=== PATIENT | male | born 1940 | race Caucasian/White ===

== ENCOUNTER 2016-12-17 21:43 | Inpatient (IN) | payer BC ==
--- NOTE | ~2016-12-17 | HP ---
History And Physical [place] [id number] [facility] [place] [place]. [address] NAME: SHAUNA JIMENEZ : 38 STATUS : ADM IN [facility]#: [id number] AGE: 76 ADM/REG DATE : 12/18/16 MR#: [id number] REPORT SERV DATE: 12/18/16 DICTATED BY: JOSE MEJIA DATE: 12/18/16 REPORT STATUS : Draft TRANSCRIBED BY: MODL DATE: 12/18/16 DATE OF ADMISSION: 12/17/2016 CHIEF COMPLAINT: Bright red blood per rectum. HISTORY OF PRESENT ILLNESS: This is a 76-year-old male with a history of hypertension, diabetes, who underwent colonoscopy today done by Dr. Leandro Garcia and had biopsies performed as well. The patient was fine in recovery, had no issues and was discharged home today. After he got home, he was fine. He had some broth and other small things to eat, had no problems. However, around 7 p.m. he started feeling that he had to go to the restroom and had a bowel movement with large volume of bright red blood. They immediately decided to come back to the emergency room to be evaluated. Here in the emergency room he also had another massive bowel movement with a lot of bright red blood. Hospitalist Service has asked to admit him after I spoke with Dr. Mcqueen, who was covering for Dr. Garcia. Dr. Mcqueen had advised bowel prep for colonoscopy tomorrow. At the time of my evaluation, he denied any chest pain or palpitations. He had no orthopnea. He had no cough, hemoptysis, night sweats, or weight loss. He has not had any falls or loss of consciousness. He has not had any fevers or chills, nausea, vomiting, or diarrhea. He did have hematochezia as mentioned above. No history of hematuria or hematemesis. No other history of recent travel or exposures other than those mentioned above. His blood pressure upon arrival here initially was 109/65, at the time of my evaluation, he did drop down to 95/56 with a mean of 75. Since his arrival in the ER, I repeated a stat H and H after looking at the patient and he had a drop from 14.4 and 42.2 to 11.0 and 32.1 in about two hours. PAST MEDICAL HISTORY: Significant for essential hypertension and diabetes mellitus. SOCIAL HISTORY: He does not smoke, drink, or use recreational drugs. 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 FAMILY HISTORY: Noncontributory. MEDICATIONS: At home were reviewed by me in the chart today and reordered by me. REVIEW OF SYSTEMS: As in history of present illness. All other systems were reviewed in detail and quite unremarkable. PHYSICAL EXAMINATION: GENERAL: This is a pleasant 76-year-old, not in any acute distress. HEENT: His head is atraumatic, normocephalic. His pupils were equal, reacting to light and accommodating. External ocular muscles were intact. Membranes were moist and pink. Sclera appeared nonicteric. NECK: Supple with no jugular venous distention, lymphadenopathy, or thyromegaly. LUNGS: Auscultation of his lungs revealed fair to moderate air entry bilaterally with no History And Physical [address] [address] NAME: SHAUNA JIMENEZ : 38 STATUS : ADM IN [facility]#: [id number] AGE: 76 ADM/REG DATE : 12/18/16 MR#: [id number] REPORT SERV DATE: 12/18/16 DICTATED BY: JOSE MEJIA DATE: 12/18/16 REPORT STATUS : Draft TRANSCRIBED BY: KAYLEIGH DATE: 12/18/16 wheezes, rubs, or crackles. HEART: Heart sounds were regular with no murmurs, rubs, or gallops. ABDOMEN: Soft, nontender. Bowel sounds are present. EXTREMITIES: No cyanosis, clubbing, or edema. NEUROLOGIC: Grossly intact. No focal sensory or motor deficits. Other functions appeared intact. VITAL SIGNS: His vital signs today showed a temperature of 97.6, pulse 65, respirations 16 a minute, blood pressure upon arrival was 189/100 which later dropped down to 109/65. At the time of my evaluation, it was 95/56 with a mean of 75. Oxygen saturations were 100% on 2 L of oxygen via nasal cannula. LABORATORY DATA: Reviewed on the [employer] system showed a sodium of 145, potassium 4.1, chloride 114, and CO2 was 23. BUN was 18 with a creatinine of 1.35 which is his baseline. His blood glucose was 122. CBC showed a white blood cell count of 14,600, hemoglobin was 11, hematocrit 32.1, platelet count was 268,000. Urinalysis was not performed today. Films of the CT scan of his abdomen and pelvis were reviewed by me on the PACS today and official radiology report was also reviewed. There is no acute intra-abdominal or pelvic pathology. There is some thickening of the rectum. There was no perforation or pneumoperitoneum mentioned. IMPRESSION: 1. Acute gastrointestinal bleeding. 2. Status post colonoscopy today. 3. Essential hypertension. 4. Diabetes mellitus type 2. PLAN: We will admit Mr. Jimenez to the Hospitalist Service in a Medical Intermediate Care bed for close monitoring. At the time of my evaluation, his blood pressures had dropped and the patient started appearing pale. We type, cross, and transfused two units of packed red cells on a stat, started him on fluid boluses as well. His blood pressures returned and were trending. We will follow hemoglobin and hematocrit levels, and transfuse again if needed. He may need central venous access but we will monitor the situation closely. We will also start him on sugar control with NovoLog given subcutaneously per sliding scale. At this point, I called Dr. Mcqueen again and discussed hypotension and drop in hemoglobin and hematocrit levels with him, he is agreeable with the blood transfusions and has made to go ahead and start the GoLYTELY tonight. He is also okay with the IMCU admission at this point. We will watch Mr. Jimenez closely and I have discussed the above plans with the patient and his family. Questions were answered and they are agreeable to the above recommendations. We will also place him on SCDs for DVT prophylaxis while here. Please see today's orders for details. Total critical care time spent with the patient is 45 minutes including discussing with the patient's family and Dr. Mcqueen. /KAYLEIGH Jose Mejia, History And Physical [address] [address] NAME: SHAUNA JIMENEZ : 38 STATUS : ADM IN [facility]#: [id number] AGE: 76 ADM/REG DATE : 12/18/16 MR#: [id number] REPORT SERV DATE: 12/18/16 DICTATED BY: JOSE MEJIA DATE: 12/18/16 REPORT STATUS : Draft TRANSCRIBED BY: KAYLEIGH DATE: 12/18/16 Jessica / [id number] CC: Jessica Daugherty M.D.
--- NOTE | ~2016-12-17 | CN ---
Consultation Report [place] [address] [facility] [place]. [address] NAME: SHAUNA HUNTER JHON : 38 STATUS : ADM IN [facility]#: [id number] AGE: 76 ADM/REG DATE : 12/18/16 MR#: [id number] REPORT SERV DATE: 12/19/16 DICTATED BY: SHAUNA WARNER III DATE: 12/19/16 REPORT STATUS : Draft TRANSCRIBED BY: MODL DATE: 12/19/16 CONSULTATION DATE OF CONSULTATION: 12/18/2016 ATTENDING PHYSICIAN: Dr. Lau. REASON FOR CONSULTATION: 1. Acute abdominal pain. 2. Possible colon perforation. 3. Recommendation regarding surgical management. HISTORY OF PRESENT ILLNESS: We were asked to see this 76-year-old male emergently in the [facility]. The patient underwent a colonoscopy for screening purposes on 12/17/2016. The patient had several polyps removed. The patient tolerated the procedure well. On the evening of the procedure, he developed a large amount of bright red blood per rectum. This was associated with the right lower quadrant abdominal pain and syncopal episode. The patient was brought to the emergency room. He was found to have a normal hematocrit, but this dropped from 42 to 32. He received 2 units of blood in transfusion. He was prepped, and was taken for repeat colonoscopy by Dr. Lau; however, just prior to this, he developed a sudden onset of severe lower abdominal pain. Initially, there was a concern about possibility of pneumoperitoneum on KUB. Colonoscopy was not performed. A CT scan of the abdomen and pelvis was performed, which showed no evidence for perforation. The patient states that he feels much better. MEDICATIONS: Home medications; Altace, aspirin, and Aleve. ALLERGIES: NONE. PAST MEDICAL HISTORY: Remarkable for hypertension and diabetes. 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 He has no history of tobacco or alcohol use. He is . FAMILY HISTORY: Unremarkable. PHYSICAL EXAMINATION: GENERAL: This is a male, in no acute distress. He is alert and oriented x3. VITAL SIGNS: Temp 97.3, pulse 75, and blood pressure 140/72. Hematocrit 35 after 2 units of blood. White blood cell count of 7.6. Consultation Report [place] [address] [facility] [place]. [address] NAME: VOLKSHAUNA SCOTT : 38 STATUS : ADM IN PAT#: [id number] AGE: 76 ADM/REG DATE : 12/18/16 MR#: [id number] REPORT SERV DATE: 12/19/16 DICTATED BY: SHAUNA WARNER III DATE: 12/19/16 REPORT STATUS : Draft TRANSCRIBED BY: MODL DATE: 12/19/16 ABDOMEN: Soft and nontender. EXTREMITIES: Normal with no edema. LABORATORY DATA: KUB to my exam shows a large amount of gas in the colon with no evidence for pneumoperitoneum. CT scan of the abdomen and pelvis as above shows no evidence for an acute perforation. ASSESSMENT: 1. 76-year-old male with lower GI bleeding following polypectomy. This appears to be slowing clinically at this time. 2. Acute abdominal pain, with no evidence for gastrointestinal perforation clinically or on the CT scan. The patient does have a possible left ureteral stone which may be the etiology for his pain. 3. Hypertension. 4. Diabetes mellitus. PLAN: The patient is stable at this time. No evidence of need for acute surgical intervention. He remain in the ICU with serial hematocrits. A bleeding scan may be indicated if the bleeding continues. Otherwise, we will continue the patient with observation. I have explained to the patient that again he has no evidence for need for acute surgical issue at this time as long as the bleeding continues to eleno. We will follow the patient with you. This plan has been explained to the patient. His questions had been answered. He understands and agrees to this as planned. RHJ/KAYLEIGH Shauna Warner III, M.D. / [id number] CC: Jessica Daugherty M.D.
--- NOTE | ~2016-12-17 | DS ---
Discharge Summary [facility] [address] [place]. [address] NAME: SHAUNA JIMENEZ : 38 STATUS : DIS IN PAT#: [id number] AGE: 76 ADM/REG DATE : 12/18/16 MR#: [id number] REPORT SERV DATE: 12/28/16 DICTATED BY: BRONSON CORTEZ DATE: 12/27/16 REPORT STATUS : Draft TRANSCRIBED BY: MODL DATE: 12/27/16 ADMISSION DATE: 12/18/2016 DISCHARGE DATE: 12/21/2016 DISCHARGE DIAGNOSIS: 1. Postop GI bleed. 2. Ileus. 3. Hypertension. 4. Hemorrhoids. DISCHARGE: Medications and instructions follow up with GI as previously ordered. Follow up PCP in 1 to 2 weeks. DISCHARGE MEDICATIONS: Aspirin 81 mg one tab p.o. q.h.s., no Aleve and discontinue home Aleve, and ramipril 5 mg one tab p.o. at bedtime. HOSPITAL COURSE: Please see H and P for complete details of HPI. Briefly, Mr. Jimenez is a very pleasant 76-year-old male, who presents after having GI colonoscopy requiring polyps biopsy and removal, who is doing well post procedure, but had subsequent same-day GI bleed. Did have a drop in H and H, and was required to have repeat scope. The patient was able to have stabilization of bleeding. Dr. Resendiz was also consulted for possible acute perforation; however, this was ruled out. The patient was advanced diet. Serial CBCs remained stable, and the patient will have follow up with PCP and GI after discharge, the patient was agreeable to plan, felt comfortable without any discomfort and no more repeated bright red blood. DDN/MODL Bronson Cortez MD / [id number] CC: MD Mague Wren M.D.
--- NOTE | ~2016-12-17 | CN ---
Consultation Report [place] [address] [facility] [place]. [address] NAME: SHAUNA HUNTER : 38 STATUS : ADM IN PAT#: [id number] AGE: 76 ADM/REG DATE : 12/18/16 MR#: [id number] REPORT SERV DATE: 12/18/16 DICTATED BY: SANG PEREZ DATE: 12/18/16 REPORT STATUS : Draft TRANSCRIBED BY: MODL DATE: 12/18/16 GI CONSULT DATE OF CONSULTATION: 12/18/2016 HISTORY OF PRESENT ILLNESS: The patient is a 76-year-old gentleman who began bleeding after a colonoscopy and polypectomy yesterday. He had a whole toilet full of blood and one more large bowel movement in the ER, became lightheaded. He denies any abdominal pain, any fevers or chills. At the time of colonoscopy, a 2 cm polyp was removed from his ascending colon with hot snare technique in piecemeal fashion. A 1.2 cm polyp was removed from the appendiceal orifice and a smaller polyp was removed from the sigmoid. The patient, on admission, had a hemoglobin of 14, was given 2 units of blood and his hemoglobin today was about 12.5. PAST MEDICAL HISTORY: 1. Hypertension. 2. Diabetes mellitus. MEDICATIONS: Reviewed. He has not been taking any aspirin or nonsteroidals recently, although he is on these on a basis prior to his colonoscopy. ALLERGIES: NONE. SOCIAL HISTORY: The patient has a past history of tobacco use. Occasionally drinks wine. PHYSICAL EXAMINATION: GENERAL: The patient is a white male, in mild distress. LUNGS: Clear. CARDIOVASCULAR: Regular rhythm. ABDOMEN: Soft. There are no masses. No tenderness to palpation. LABORATORY DATA: As noted. ASSESSMENT: 1. Post polypectomy bleed. 2. Other medical problems as above. RECOMMENDATION: We will have the patient take GoLYTELY and try to perform therapeutic colonoscopy today. LS/MODL Consultation Report [address] [place]. [address] NAME: SHAUNA HUNTER : 39 STATUS : ADM IN PAT#: [id number] AGE: 76 ADM/REG DATE : 12/18/16 MR#: [id number] REPORT SERV DATE: 12/18/16 DICTATED BY: SANG PEREZ DATE: 12/18/16 REPORT STATUS : Draft TRANSCRIBED BY: KAYLEIGH DATE: 12/18/16 Sang Perez M.D. / [id number] CC: Jessica Daugherty M.D.
[2016-12-17] MEDS ORDERED: ASAB PO (21:44)
[2016-12-17] MEDS ORDERED: ALTA5 PO (21:44)
[2016-12-17] MEDS ORDERED: ALEVE220 MG PO (21:45)
[2016-12-17 21:49] LABS: BASOPHILS 0.5 %; BASOPHILS ABSOLUTE 0.07 10/3/uL (0.0-0.16); EOSINOPHILS 0.8 %; EOSINOPHILS ABSOLUTE 0.12 10/3/uL (0.0-0.53); HEMATOCRIT 42.2 % (40.0-51.0); HEMOGLOBIN 14.4 g/dL (13.6-17.8); IMMATURE GRANULOCYTES 0.3 %; IMMATURE GRANULOCYTES ABSOLUTE 0.04 10/3/uL (0.0-0.11); LYMPHOCYTES 14.7 %; LYMPHOCYTES ABSOLUTE 2.14 10/3/uL (0.67-4.30); MEAN CORPUS HGB CONC 34.1 g/dL (32.0-36.0); MEAN CORPUSCULAR HEMOGLOB 33.2 pg (26.0-34.0); MEAN CORPUSCULAR VOLUME 97.2 fL (80-100); MEAN PLATELET VOLUME 9.8 fL (9.2-13.0); MONOCYTES 5.8 %; MONOCYTES ABSOLUTE 0.84 10/3/uL (0.21-1.20); NEUTROPHILS 77.9 %; NEUTROPHILS ABSOLUTE 11.39 10/3/uL (2.02-8.40); PLATELET COUNT 268 10/3/uL (150-400); RBC DISTRIBUTION WIDTH 13.7 % (12.0-16.0); RED CELL COUNT 4.34 10/6/uL (4.7-6.1)
[2016-12-17 21:50] LABS: ER CBC TAT 0 Hrs 08 Mins; MANUAL DIFF NO %; WHITE BLOOD CELLS 14.6 10/3/uL (4.5-10.5)
[2016-12-17 21:55] LABS: INTERNATIONAL NORMAL RATI 1.1 UNITS (-); PARTIAL THROMBO TIME 24.4 SEC (22.5-37.2); PROTIME (NOT ORD) 13.6 SEC (12.0-14.5)
[2016-12-17 22:03] LABS: A/G RATIO 1.4 (0.7-1.9); ALBUMIN 3.9 G/DL (3.5-5.0); BUN (BLOOD UREA NITROGEN) 18 MG/DL (6-23); CALCIUM, SERUM 8.1 MG/DL (8.5-10.4); CHLORIDE, SERUM 114 MMOL/L (96-112); CO2 (CARBON DIOXIDE) 23 MMOL/L (24-34); CREATININE 1.35 MG/DL (0.70-1.30); GFR AFRICAN AMERICAN 58 ML/MIN (>=60); GFR NON AFRICAN AMERICAN 50 ML/MIN (>=60); GLOBULIN 2.8 G/DL (2.5-4.1); POTASSIUM, SERUM 4.1 MMOL/L (3.5-5.3); SGOT(AST) 16 U/L (5-40); SGPT(ALT) 21 U/L (5-65); SODIUM, SERUM 145 MMOL/L (135-148); TOTAL BILIRUBIN 1.9 MG/DL (0-1.2); TOTAL PROTEIN 6.7 G/DL (6.0-8.5)
[2016-12-17 22:04] LABS: ALKALINE PHOSPHATASE 87 U/L (45-117); GLUCOSE, SERUM 122 MG/DL (60-99)
[2016-12-17 23:08] LABS: HEMATOCRIT 32.1 % (40.0-51.0)
[2016-12-18 05:36] LABS: BASOPHILS 0.4 %; BASOPHILS ABSOLUTE 0.03 10/3/uL (0.0-0.16); EOSINOPHILS 0.4 %; EOSINOPHILS ABSOLUTE 0.03 10/3/uL (0.0-0.53); HEMOGLOBIN 12.4 g/dL (13.6-17.8); IMMATURE GRANULOCYTES 0.3 %; IMMATURE GRANULOCYTES ABSOLUTE 0.02 10/3/uL (0.0-0.11); LYMPHOCYTES 15.6 %; LYMPHOCYTES ABSOLUTE 1.19 10/3/uL (0.67-4.30); MEAN CORPUS HGB CONC 34.9 g/dL (32.0-36.0); MEAN CORPUSCULAR HEMOGLOB 32.1 pg (26.0-34.0); MEAN PLATELET VOLUME 9.7 fL (9.2-13.0); MONOCYTES 7.5 %; MONOCYTES ABSOLUTE 0.57 10/3/uL (0.21-1.20); NEUTROPHILS 75.8 %; NEUTROPHILS ABSOLUTE 5.79 10/3/uL (2.02-8.40); RED CELL COUNT 3.86 10/6/uL (4.7-6.1)
[2016-12-18 05:40] LABS: WHITE BLOOD CELLS 7.6 10/3/uL (4.5-10.5)
[2016-12-18 05:41] LABS: HEMATOCRIT 35.5 % (40.0-51.0); MANUAL DIFF NO %; PLATELET COUNT 165 10/3/uL (150-400)
[2016-12-18 05:52] LABS: BUN (BLOOD UREA NITROGEN) 16 MG/DL (6-23); CHLORIDE, SERUM 119 MMOL/L (96-112); CO2 (CARBON DIOXIDE) 23 MMOL/L (24-34); GFR AFRICAN AMERICAN 84 ML/MIN (>=60); GFR NON AFRICAN AMERICAN 72 ML/MIN (>=60); GLUCOSE, SERUM 99 MG/DL (60-99); POTASSIUM, SERUM 4.4 MMOL/L (3.5-5.3); SODIUM, SERUM 148 MMOL/L (135-148)
[2016-12-18 05:53] LABS: CALCIUM, SERUM 7.1 MG/DL (8.5-10.4)
[2016-12-18 12:10] LABS: HEMATOCRIT 34.5 % (40.0-51.0); HEMOGLOBIN 12.1 g/dL (13.6-17.8)
[2016-12-18 16:02] LABS: HEMOGLOBIN 11.5 g/dL (13.6-17.8)
[2016-12-18 23:12] LABS: HEMATOCRIT 33.5 % (40.0-51.0); HEMOGLOBIN 11.7 g/dL (13.6-17.8)
[2016-12-19 08:24] LABS: BASOPHILS 0.3 %; BASOPHILS ABSOLUTE 0.02 10/3/uL (0.0-0.16); EOSINOPHILS 0.7 %; EOSINOPHILS ABSOLUTE 0.05 10/3/uL (0.0-0.53); HEMATOCRIT 31.3 % (40.0-51.0); IMMATURE GRANULOCYTES 0.3 %; IMMATURE GRANULOCYTES ABSOLUTE 0.02 10/3/uL (0.0-0.11); LYMPHOCYTES 9.9 %; LYMPHOCYTES ABSOLUTE 0.73 10/3/uL (0.67-4.30); MANUAL DIFF NO %; MEAN CORPUS HGB CONC 35.1 g/dL (32.0-36.0); MEAN CORPUSCULAR HEMOGLOB 32.2 pg (26.0-34.0); MEAN CORPUSCULAR VOLUME 91.5 fL (80-100); MEAN PLATELET VOLUME 9.4 fL (9.2-13.0); MONOCYTES 6.3 %; MONOCYTES ABSOLUTE 0.47 10/3/uL (0.21-1.20); NEUTROPHILS 82.5 %; NEUTROPHILS ABSOLUTE 6.12 10/3/uL (2.02-8.40); PLATELET COUNT 127 10/3/uL (150-400); RED CELL COUNT 3.42 10/6/uL (4.7-6.1); WHITE BLOOD CELLS 7.4 10/3/uL (4.5-10.5)
[2016-12-19 08:35] LABS: BUN (BLOOD UREA NITROGEN) 9 MG/DL (6-23); CALCIUM, SERUM 7.7 MG/DL (8.5-10.4); CHLORIDE, SERUM 114 MMOL/L (96-112); CO2 (CARBON DIOXIDE) 24 MMOL/L (24-34); CREATININE 0.91 MG/DL (0.70-1.30); GFR AFRICAN AMERICAN 94 ML/MIN (>=60); GFR NON AFRICAN AMERICAN 81 ML/MIN (>=60); GLUCOSE, SERUM 83 MG/DL (60-99); SODIUM, SERUM 143 MMOL/L (135-148)
[2016-12-19 16:11] LABS: BASOPHILS 0.3 %; BASOPHILS ABSOLUTE 0.02 10/3/uL (0.0-0.16); EOSINOPHILS ABSOLUTE 0.06 10/3/uL (0.0-0.53); HEMATOCRIT 30.8 % (40.0-51.0); HEMOGLOBIN 10.9 g/dL (13.6-17.8); IMMATURE GRANULOCYTES 0.2 %; IMMATURE GRANULOCYTES ABSOLUTE 0.01 10/3/uL (0.0-0.11); LYMPHOCYTES 10.1 %; LYMPHOCYTES ABSOLUTE 0.61 10/3/uL (0.67-4.30); MEAN CORPUS HGB CONC 35.4 g/dL (32.0-36.0); MEAN CORPUSCULAR HEMOGLOB 32.5 pg (26.0-34.0); MEAN CORPUSCULAR VOLUME 91.9 fL (80-100); MEAN PLATELET VOLUME 9.2 fL (9.2-13.0); MONOCYTES ABSOLUTE 0.36 10/3/uL (0.21-1.20); NEUTROPHILS 82.4 %; NEUTROPHILS ABSOLUTE 4.97 10/3/uL (2.02-8.40); PLATELET COUNT 124 10/3/uL (150-400); RBC DISTRIBUTION WIDTH 15.6 % (12.0-16.0); RED CELL COUNT 3.35 10/6/uL (4.7-6.1)
[2016-12-19 16:12] LABS: MANUAL DIFF NO %
[2016-12-19 20:47] LABS: HEMATOCRIT 31.8 % (40.0-51.0); HEMOGLOBIN 11.2 g/dL (13.6-17.8)
[2016-12-19 22:20] LABS: BASOPHILS 0 %; EOSINOPHILS 1.2 %; EOSINOPHILS ABSOLUTE 0.06 10/3/uL (0.0-0.53); HEMOGLOBIN 9.9 g/dL (13.6-17.8); IMMATURE GRANULOCYTES 0.2 %; IMMATURE GRANULOCYTES ABSOLUTE 0.01 10/3/uL (0.0-0.11); LYMPHOCYTES 8.9 %; LYMPHOCYTES ABSOLUTE 0.45 10/3/uL (0.67-4.30); MEAN CORPUS HGB CONC 35.2 g/dL (32.0-36.0); MEAN CORPUSCULAR HEMOGLOB 32.2 pg (26.0-34.0); MEAN CORPUSCULAR VOLUME 91.5 fL (80-100); MEAN PLATELET VOLUME 9.3 fL (9.2-13.0); MONOCYTES 5.7 %; MONOCYTES ABSOLUTE 0.29 10/3/uL (0.21-1.20); NEUTROPHILS ABSOLUTE 4.24 10/3/uL (2.02-8.40); PLATELET COUNT 119 10/3/uL (150-400); RBC DISTRIBUTION WIDTH 15.6 % (12.0-16.0); RED CELL COUNT 3.07 10/6/uL (4.7-6.1); WHITE BLOOD CELLS 5.1 10/3/uL (4.5-10.5)
[2016-12-19 22:21] LABS: HEMATOCRIT 28.1 % (40.0-51.0); MANUAL DIFF NO %
[2016-12-20 05:20] LABS: BASOPHILS 0.2 %; BASOPHILS ABSOLUTE 0.01 10/3/uL (0.0-0.16); EOSINOPHILS 1.6 %; EOSINOPHILS ABSOLUTE 0.08 10/3/uL (0.0-0.53); HEMATOCRIT 28.3 % (40.0-51.0); HEMOGLOBIN 10.2 g/dL (13.6-17.8); IMMATURE GRANULOCYTES 0.2 %; IMMATURE GRANULOCYTES ABSOLUTE 0.01 10/3/uL (0.0-0.11); LYMPHOCYTES 9.3 %; LYMPHOCYTES ABSOLUTE 0.45 10/3/uL (0.67-4.30); MEAN CORPUSCULAR HEMOGLOB 33.2 pg (26.0-34.0); MEAN CORPUSCULAR VOLUME 92.2 fL (80-100); MEAN PLATELET VOLUME 9.4 fL (9.2-13.0); MONOCYTES 5.1 %; MONOCYTES ABSOLUTE 0.25 10/3/uL (0.21-1.20); NEUTROPHILS 83.6 %; NEUTROPHILS ABSOLUTE 4.06 10/3/uL (2.02-8.40); PLATELET COUNT 127 10/3/uL (150-400); RBC DISTRIBUTION WIDTH 15.4 % (12.0-16.0); RED CELL COUNT 3.07 10/6/uL (4.7-6.1); WHITE BLOOD CELLS 4.9 10/3/uL (4.5-10.5)
[2016-12-20 05:24] LABS: MANUAL DIFF NO %
[2016-12-20 05:33] LABS: BUN (BLOOD UREA NITROGEN) 6 MG/DL (6-23); CALCIUM, SERUM 7.9 MG/DL (8.5-10.4); CHLORIDE, SERUM 116 MMOL/L (96-112); CO2 (CARBON DIOXIDE) 21 MMOL/L (24-34); CREATININE 0.89 MG/DL (0.70-1.30); GFR AFRICAN AMERICAN 96 ML/MIN (>=60); GFR NON AFRICAN AMERICAN 82 ML/MIN (>=60); POTASSIUM, SERUM 3.6 MMOL/L (3.5-5.3); SODIUM, SERUM 146 MMOL/L (135-148)
[2016-12-20 05:39] LABS: GLUCOSE, SERUM 100 MG/DL (60-99)
[2016-12-20 12:04] LABS: BASOPHILS 0.2 %; BASOPHILS ABSOLUTE 0.01 10/3/uL (0.0-0.16); EOSINOPHILS 1.8 %; EOSINOPHILS ABSOLUTE 0.08 10/3/uL (0.0-0.53); HEMATOCRIT 28.7 % (40.0-51.0); HEMOGLOBIN 10.1 g/dL (13.6-17.8); IMMATURE GRANULOCYTES 0.2 %; IMMATURE GRANULOCYTES ABSOLUTE 0.01 10/3/uL (0.0-0.11); LYMPHOCYTES 9.7 %; LYMPHOCYTES ABSOLUTE 0.42 10/3/uL (0.67-4.30); MEAN CORPUS HGB CONC 35.2 g/dL (32.0-36.0); MEAN CORPUSCULAR HEMOGLOB 32.2 pg (26.0-34.0); MEAN CORPUSCULAR VOLUME 91.4 fL (80-100); MEAN PLATELET VOLUME 9.3 fL (9.2-13.0); MONOCYTES 7.1 %; MONOCYTES ABSOLUTE 0.31 10/3/uL (0.21-1.20); NEUTROPHILS ABSOLUTE 3.51 10/3/uL (2.02-8.40); PLATELET COUNT 132 10/3/uL (150-400); RBC DISTRIBUTION WIDTH 15.4 % (12.0-16.0); RED CELL COUNT 3.14 10/6/uL (4.7-6.1); WHITE BLOOD CELLS 4.3 10/3/uL (4.5-10.5)
[2016-12-20 12:10] LABS: MANUAL DIFF NO %
[2016-12-20 21:32] LABS: BASOPHILS 0.2 %; BASOPHILS ABSOLUTE 0.01 10/3/uL (0.0-0.16); EOSINOPHILS 2.2 %; HEMATOCRIT 28.7 % (40.0-51.0); HEMOGLOBIN 10.3 g/dL (13.6-17.8); IMMATURE GRANULOCYTES 0.2 %; IMMATURE GRANULOCYTES ABSOLUTE 0.01 10/3/uL (0.0-0.11); LYMPHOCYTES 13.7 %; LYMPHOCYTES ABSOLUTE 0.62 10/3/uL (0.67-4.30); MEAN CORPUS HGB CONC 35.9 g/dL (32.0-36.0); MEAN CORPUSCULAR HEMOGLOB 32.7 pg (26.0-34.0); MEAN CORPUSCULAR VOLUME 91.1 fL (80-100); MEAN PLATELET VOLUME 9.3 fL (9.2-13.0); MONOCYTES 8.4 %; MONOCYTES ABSOLUTE 0.38 10/3/uL (0.21-1.20); NEUTROPHILS 75.3 %; NEUTROPHILS ABSOLUTE 3.41 10/3/uL (2.02-8.40); PLATELET COUNT 143 10/3/uL (150-400); RBC DISTRIBUTION WIDTH 15.1 % (12.0-16.0); RED CELL COUNT 3.15 10/6/uL (4.7-6.1); WHITE BLOOD CELLS 4.5 10/3/uL (4.5-10.5)
[2016-12-20 21:35] LABS: MANUAL DIFF NO %
[2016-12-21 06:35] LABS: BASOPHILS 0.5 %; BASOPHILS ABSOLUTE 0.02 10/3/uL (0.0-0.16); EOSINOPHILS 3.8 %; EOSINOPHILS ABSOLUTE 0.16 10/3/uL (0.0-0.53); HEMATOCRIT 29.4 % (40.0-51.0); HEMOGLOBIN 10.4 g/dL (13.6-17.8); IMMATURE GRANULOCYTES 0.2 %; IMMATURE GRANULOCYTES ABSOLUTE 0.01 10/3/uL (0.0-0.11); LYMPHOCYTES 19.8 %; LYMPHOCYTES ABSOLUTE 0.83 10/3/uL (0.67-4.30); MEAN CORPUS HGB CONC 35.4 g/dL (32.0-36.0); MEAN CORPUSCULAR HEMOGLOB 31.8 pg (26.0-34.0); MEAN CORPUSCULAR VOLUME 89.9 fL (80-100); MEAN PLATELET VOLUME 9.3 fL (9.2-13.0); MONOCYTES 8.8 %; MONOCYTES ABSOLUTE 0.37 10/3/uL (0.21-1.20); NEUTROPHILS 66.9 %; PLATELET COUNT 145 10/3/uL (150-400); RED CELL COUNT 3.27 10/6/uL (4.7-6.1); WHITE BLOOD CELLS 4.2 10/3/uL (4.5-10.5)
[2016-12-21 06:38] LABS: MANUAL DIFF NO %
[2016-12-21 06:48] LABS: BUN (BLOOD UREA NITROGEN) 7 MG/DL (6-23); CHLORIDE, SERUM 110 MMOL/L (96-112); CO2 (CARBON DIOXIDE) 24 MMOL/L (24-34); CREATININE 0.97 MG/DL (0.70-1.30); GFR AFRICAN AMERICAN 87 ML/MIN (>=60); GFR NON AFRICAN AMERICAN 75 ML/MIN (>=60); GLUCOSE, SERUM 92 MG/DL (60-99); POTASSIUM, SERUM 3.7 MMOL/L (3.5-5.3); SODIUM, SERUM 140 MMOL/L (135-148)
== END 2016-12-21 12:10 | disposition home or self-care (01) | DRG 920 ==
LOC: ER 21:43 → IMCU 12-18 00:29 → 4SO 12-19 16:23
PROVIDERS: Emergency Medicine; Internal Medicine; Internal Medicine Gastroenterology; Internal Medicine Pulmonary Disease; Student in an Organized Health Care Education/Training Program
PROC: 30233N1 Transfusion of Nonautologous Red Blood Cells into Peripheral Vein, Percutaneous Approach (ICD-10-PCS; principal; 2016-12-17)
DX: K91.840 Postprocedural hemorrhage of a digestive system organ or structure following a digestive system procedure (principal); K92.2 Gastrointestinal hemorrhage, unspecified; K56.7 Ileus, unspecified; E11.9 Type 2 diabetes mellitus without complications; N20.1 Calculus of ureter; I10 Essential (primary) hypertension; Z87.891 Personal history of nicotine dependence; Z53.09 Procedure and treatment not carried out because of other contraindication
CPT/HCPCS: 36415; 36430; 74000; 74020; 74176; 80048; 80053; 82962; 83735; 84100; 85014; 85018; 85025; 85610; 85730; 86850; 86900; 86901; 86920; 87641; 96374; 99285; A9270-GY; J1956; J2405; P9016